=== PATIENT | female | born 2000 | race African-American/Black ===

== ENCOUNTER 2023-06-25 20:04 | Emergency (ER) | payer MEDICAID, OTHER ==
[~2023-06-25] VITALS: Ht 167.7 cm; Wt 70.3 kg
--- NOTE | 2023-06-25 20:22 | ED GU-Female ---
General Chief Complaint: - Reproductive Stated Complaint: UTI SYMPTOMS Source: patient Exam Limitations: no limitations (CYNTHIA BRO) History of Present Illness Date Seen by Provider: Jun 25, 2023 Time Seen by Provider: 20:20 Initial Comments Patient is a 23-year-old female presents ED with increased urine urgency over the past 1 to 2 days. Mild pain and discomfort rates 1 out of 10. Denies of any abdominal pain back pain, vaginal discharge or vaginal bleeding. Last menstrual cycle May 28. She denies of any fever chills body aches, chest pain shortness of breath. Patient denies taking thing for pain. She is concern for potential UTI. Not concern for STD. (CYNTHIA BRO) Allergies and Home Medications Allergies Coded Allergies: No Known Drug Allergies (Unverified , 06/25/23) Patient Home Medication List Home Medication List Reviewed: Yes (CYNTHIA BRO) Cephalexin (Cephalexin) 500 Mg Tablet, 500 MG PO BID Prescribed by: NONA TORRES on 06/25/232111 Review of Systems Review of Systems Constitutional: No chills, No diaphoresis, No fever, No malaise, No weakness EENTM: No ear pain, No blurred vision Respiratory: No cough, No dyspnea on exertion Cardiovascular: No chest pain Gastrointestinal: No abdominal pain, No diarrhea, No nausea, No vomiting Genitourinary: denies burning, denies discharge; frequency, urgency Musculoskeletal: No back pain, No joint pain Skin: No change in color, No change in hair/nails (CYNTHIA BRO) All Other Systemes Reviewed Negative Unless Noted: Yes (CYNTHIA BRO) Physical Exam Vital Signs Vital Signs - First Documented 06/25/23 20:15 Temp 36.7 Pulse 85 Resp 16 B/P (MAP) 107/69 (82) Pulse Ox 100 O2 Delivery Room Air (ZACARIAS FALLON DO) Vital Signs Capillary Refill : (CYNTHIA BRO) Height, Weight, BMI Height: '" Weight: lbs. oz. 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 No vaginal bleeding or vaginal discharge. Bedside was negative. Due to her urinary symptoms urinalysis was obtained. She is afebrile. No flulike symptoms. She does not appear toxic or septic. Urinalysis with leukocytes, red blood cells and bacteria concerning for UTI. Patient received a dose of Keflex. Will discharge with Keflex 500 mg twice daily for 7 days. If any worsening symptoms such as fever chills body aches abdominal pain or flank pain to return back to ED. Follow-up your PCP in 4 to 5 days for reevaluation and with urinalysis. (CYNTHIA BRO) Impression Primary Impression: Urinary tract infection Disposition: 01 HOME, SELF-CARE Condition: Stable Departure-Patient Inst. Decision time for Depature: 21:12 (CYNTHIA BRO) Referrals: [facility] [place] NO,LOCAL PHYSICIAN (PCP) Primary Care Physician Patient Instructions: Urinary Tract Infection, Adult (DC) Add. Discharge Instructions: Recommend take antibiotics as prescribed. Recommend staying hydrated. If any worsening symptoms return back to ED. All discharge instructions reviewed with patient and/or family. Voiced understanding. Scripts Cephalexin (Cephalexin) 500 Mg Tablet 500 MG PO BID for 7 Days, #14 TAB Prov: CYNTHIA BRO 06/25/23 ATTENDING PHYSICIAN NOTE: I WAS PHYSICALLY PRESENT ER PHYSICIAN, BUT I WAS NOT INVOLVED IN ANY DECISION MAKING OR ANY CARE OF THIS PATIENT, AND I AM NOT COLLABORATING PHYSICIAN. (ZACARIAS FALLON DO) CYNTHIA BRO Jun 25, 2023 20:22 ZACARIAS FALLON DO Jun 28, 2023 03:18
[2023-06-25 21:07] LABS: BILIRUBIN,URINE NEGATIVE (NEGATIVE); CLARITY,URINE CLEAR; COLOR,URINE YELLOW; GLUCOSE, URINE (UA) NEGATIVE (NEGATIVE); KETONES,URINE NEGATIVE (NEGATIVE); NITRITE,URINE NEGATIVE (NEGATIVE); PROTEIN,URINE NEGATIVE (NEGATIVE)
[2023-06-25 21:08] LABS: BACTERIA,URINE MODERATE /HPF; LEUKOCYTE ESTERASE ,URINE TRACE (NEGATIVE); RBC,URINE 0-2 /HPF
[2023-06-25] MEDS ORDERED: CEPH500T PO (21:12)
[2023-06-25] MEDS: CEPHALEXIN 250 MG CAPSULE PO STA (21:18)
[2023-06-25 21:20] VITALS: BP 105/70
== END 2023-06-25 21:20 | disposition home or self-care (01) ==
LOC: ER 20:07
DX: N39.0 Urinary tract infection, site not specified (principal)
CPT/HCPCS: 81000; 84703; 87077; 87088; 87186; 99283

== ENCOUNTER 2023-07-18 00:29 | Emergency (ER) | payer MEDICAID ==
[~2023-07-18] VITALS: Ht 167.7 cm; Wt 76.2 kg
[~2023-07-18 00:29] MED LIST: CEPH500T PO
--- NOTE | 2023-07-18 00:52 | ED GU-Female ---
General Chief Complaint: OB < 20 WEEKS Stated Complaint: 2 WKS PREG,POSS MISCARRIAGE,CRAMPS,LIGHT BLEEDING Source: patient Exam Limitations: no limitations History of Present Illness Date Seen by Provider: Jul 18, 2023 Time Seen by Provider: 00:43 Initial Comments 23-year-old female presents emergency department today for vaginal bleeding. She believes she is about 2 weeks based on her last menstrual cycle of May 28, 2023. This evening she noticed some lower abdominal, pelvic cramping and then had some vaginal bleeding. She described as stringy and may have seen products other than blood into the toilet. She is asymptomatic at this time and bleeding has resolved. She denies fevers or chills. No urinary symptoms. No vaginal discharge or odor. No new sexual partners. She is G2, P1 including her current . All other systems reviewed and negative except documented per HPI. Voice recognition software was used to help create this chart Allergies and Home Medications Allergies Coded Allergies: No Known Drug Allergies (Unverified , 06/25/23) Patient Home Medication List Home Medication List Reviewed: Yes Cephalexin (Cephalexin) 500 Mg Tablet, 500 MG PO BID Prescribed by: NONA TORRES on 06/25/232 Cephalexin (Cephalexin) 500 Mg Tablet, 500 MG PO BID Prescribed by: JOE SANDOVAL MD on 07/18/23 0151 Review of Systems Review of Systems Constitutional: see HPI Past Mleavdv-Tbunog-Simogp Hx Patient Social History Tobacco Use?: No Substance use?: No Alcohol Use?: No Immunizations Up To Date Influenza Vaccine Up-to-Date: Yes; Up-to-Date COVID19 Vaccine Project Eng: STATES SHE HAS BEEN VACCINATED Physical Exam Vital Signs Vital Signs - First Documented 07/18/23 00:37 Pulse 98 Resp 16 B/P (MAP) 132/77 (95) Pulse Ox 99 O2 Delivery Room Air Capillary Refill : Height, Weight, BMI Height: '" Weight: lbs. oz. kg; 24.00 BMI Method: General Appearance: no apparent distress HEENT: normal ENT inspection, pharynx normal Cardiovascular: regular rate, rhythm, no murmur Respiratory: chest non-tender, lungs clear, normal breath sounds, no respiratory distress, no accessory muscle use Gastrointestinal: normal bowel sounds, non tender, soft Neurologic/Psychiatric: alert, normal mood/affect Skin: normal color, warm/dry Progress/Results/Core Measures Suspected Sepsis SIRS Temperature: Pulse: Respiratory Rate: Laboratory Tests 07/18/23 01:08: White Blood Count 5.5 Blood Pressure / Mean: Laboratory Tests 07/18/23 01:08: Creatinine 0.90, Platelet Count 228 Results/Orders Lab Results Laboratory Tests Test 07/18/23 01:00 07/18/23 01:08 Range/Units Urine Color YELLOW Urine Clarity CLEAR Urine pH 5.5 5-9 Urine Specific [place] >=1.030 1.016-1.022 Urine Protein 1+ H NEGATIVE Urine Glucose (UA) NEGATIVE NEGATIVE Urine Ketones TRACE H NEGATIVE Urine Nitrite NEGATIVE NEGATIVE Urine Bilirubin NEGATIVE NEGATIVE Urine Urobilinogen 0.2 < = 1.0 MG/DL Urine Leukocyte Esterase NEGATIVE NEGATIVE Urine RBC (Auto) 3+ H NEGATIVE Urine RBC 5-10 H /HPF Urine WBC 0-2 /HPF Urine Squamous Epithelial Cells 2-5 /HPF Urine Crystals NONE /LPF Urine Bacteria FEW H /HPF Urine Casts PRESENT /LPF Urine Hyaline Casts RARE /LPF Urine Mucus LARGE H /LPF Urine Culture Indicated YES White Blood Count 5.5 4.3-11.0 10^3/uL Red Blood Count 4.11 3.80-5.11 10^6/uL Hemoglobin 12.3 11.5-16.0 g/dL Hematocrit 37 35-52 % Mean Corpuscular Volume 91 80-99 fL Mean Corpuscular Hemoglobin 30 25-34 pg Mean Corpuscular Hemoglobin Concent 33 32-36 g/dL Red Cell Distribution Width 12.0 10.0-14.5 % Platelet Count 228 130-400 10^3/uL Mean Platelet Volume 10.2 9.0-12.2 fL Immature Granulocyte % (Auto) 0 % Neutrophils (%) (Auto) 49 42-75 % Lymphocytes (%) (Auto) 40 12-44 % Monocytes (%) (Auto) 9 0-12 % Eosinophils (%) (Auto) 2 0-10 % Basophils (%) (Auto) 1 0-10 % Neutrophils # (Auto) 2.7 1.8-7.8 10^3/uL Lymphocytes # (Auto) 2.2 1.0-4.0 10^3/uL Monocytes # (Auto) 0.5 0.0-1.0 10^3/uL Eosinophils # (Auto) 0.1 0.0-0.3 10^3/uL Basophils # (Auto) 0.0 0.0-0.1 10^3/uL Immature Granulocyte # (Auto) 0.0 0.0-0.1 10^3/uL Sodium Level 139 135-145 MMOL/L Potassium Level 3.7 3.6-5.0 MMOL/L Chloride Level 108 H 98-107 MMOL/L Carbon Dioxide Level 22 21-32 MMOL/L Anion Gap 9 5-14 MMOL/L Blood Urea Nitrogen 11 7-18 MG/DL Creatinine 0.90 0.60-1.30 MG/DL Estimat Glomerular Filtration Rate 92 BUN/Creatinine Ratio 12 Glucose Level 120 H 70-105 MG/DL Calcium Level 8.8 8.5-10.1 MG/DL Human Chorionic Gonadotropin, Quant 317 H <5 MIU/ML My Orders Orders - JAIMEJOE DO Basic Metabolic Panel (07/18/23 00:49) Ua Culture If Indicated (07/18/23 00:49) Cbc And Automated Diff (07/18/23 00:49) Abo Rh Type (07/18/23 00:49) Hcg,Quantitative (07/18/23 00:52) Urine Culture (07/18/23 01:00) Cephalexin Capsule (Cephalexin Capsule) (07/18/23 02:00) Vital Signs/I&O 07/18/23 07/18/23 00:37 01:59 Pulse 98 87 Resp 16 16 B/P (MAP) 132/77 (95) 128/75 Pulse Ox 99 100 O2 Delivery Room Air Room Air Capillary Refill : Departure Communication (Admissions) Patient is hemodynamically stable. hCG is very low. This combined with her symptoms this evening make it likely that she is having a miscarriage at this time. Did tell him he could not definitively tell her this and she would need to have repeat hCG levels. Her pain is very minimal at this time, actually states no pain at the time of discharge. I do not think she has an ectopic at this time. Blood type is B+, no indication for RhoGAM. Labs are otherwise unremarkable. She is discharged in stable condition with close follow-up and strict return precautions. Impression Primary Impression: Threatened miscarriage Additional Impression: Asymptomatic bacteriuria during Disposition: HOME, SELF-CARE Condition: Stable Departure-Patient Inst. Referrals: CHANI GABRIEL DO NO,LOCAL PHYSICIAN (PCP) Primary Care Physician Patient Instructions: Bleeding In Early Add. Discharge Instructions: As discussed unfortunately we are unable to tell you definitively if you were having a miscarriage at this time. You do have bacteria in your urine. Though you are asymptomatic it is recommended during we treated this with antibiotics. Please take them as prescribed until they are gone. I recommend you follow-up with Dr. GABRIEL by calling to schedule an appointment for repeat hCG levels. Return to the emergency department for any significant bleeding, severe cramping or if your symptoms change in any way concerning to you. All discharge instructions reviewed with patient and/or family. Voiced understanding. Scripts Cephalexin (Cephalexin) 500 Mg Tablet 500 MG PO BID for 5 Days, #10 TAB Prov: JOE SANDOVAL DO 07/18/23 JOE SANDOVAL DO Jul 18, 2023 00:52
[2023-07-18 01:17] LABS: BASOPHILS % (AUTO) 1 % (0-10); EOSINOPHILS # (AUTO) 0.1 10^3/uL (0.0-0.3); EOSINOPHILS % (AUTO) 2 % (0-10); HEMATOCRIT 37 % (35-52); HEMOGLOBIN 12.3 g/dL (11.5-16.0); LYMPHOCYTES # (AUTO) 2.2 10^3/uL (1.0-4.0); LYMPHOCYTES % (AUTO) 40 % (12-44); MEAN CORPUSCULAR HEMOGLOBIN 30 pg (25-34); MEAN CORPUSCULAR HGB CONC 33 g/dL (32-36); MEAN CORPUSCULAR VOLUME 91 fL (80-99); MEAN PLATELET VOLUME 10.2 fL (9.0-12.2); MONOCYTES # (AUTO) 0.5 10^3/uL (0.0-1.0); MONOCYTES % (AUTO) 9 % (0-12); NEUTROPHILS # (AUTO) 2.7 10^3/uL (1.8-7.8); NEUTROPHILS % (AUTO) 49 % (42-75); PLATELET COUNT 228 10^3/uL (130-400); WHITE BLOOD COUNT 5.5 10^3/uL (4.3-11.0)
[2023-07-18 01:21] LABS: BACTERIA,URINE FEW /HPF; BILIRUBIN,URINE NEGATIVE (NEGATIVE); CLARITY,URINE CLEAR; COLOR,URINE YELLOW; GLUCOSE, URINE (UA) NEGATIVE (NEGATIVE); KETONES,URINE TRACE (NEGATIVE); LEUKOCYTE ESTERASE ,URINE NEGATIVE (NEGATIVE); NITRITE,URINE NEGATIVE (NEGATIVE); PH,URINE 5.5 (5-9); PROTEIN,URINE 1+ (NEGATIVE); WBC,URINE 0-2 /HPF
[2023-07-18 01:22] LABS: HYALINE CASTS, URINE RARE /LPF
[2023-07-18 01:32] LABS: POTASSIUM 3.7 MMOL/L (3.6-5.0)
[2023-07-18 01:34] LABS: CALCIUM 8.8 MG/DL (8.5-10.1)
[2023-07-18 01:38] LABS: CREATININE SERUM 0.9 MG/DL (0.60-1.30)
[2023-07-18] MEDS ORDERED: CEPH500T PO (01:51)
[2023-07-18 01:59] VITALS: BP 128/75
[2023-07-18] MEDS ORDERED: CEPHALEXIN 250 MG CAPSULE PO SCH (02:00)
== END 2023-07-18 01:59 | disposition home or self-care (01) ==
LOC: EDUNIT# 00:29 → ER 00:34
DX: O20.0 Threatened abortion (principal); O98.811 Other maternal infectious and parasitic diseases complicating pregnancy, first trimester; R82.71 Bacteriuria; Z3A.01 Less than 8 weeks gestation of pregnancy
CPT/HCPCS: 36415; 80048; 81000; 84702; 85025; 86900; 86901; 87088